=== PATIENT | female | born 1980 | race Caucasian/White ===

== ENCOUNTER 2016-08-20 14:05 | Emergency (ER) | payer OTHER ==
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
--- NOTE | 2016-08-25 08:57 | ED MED RECONCILIATION SUMMARY ---
Patient: ARIANNE CAVANAUGH Medication Reconciliation Report [facility] VisitID: [id number] [address] [place] [address] 35y, F Registration Date/Time: 08/20/2016 Weight: 73.4 kg Height/Length: 63 in. BMI: 28.7 ALLERGIES: No Known Drug Allergy The patient's Home Medications are listed below: NONE. The source(s) of the original Home Medication information: Not obtained. The following Medications were given to the patient in the Emergency Department: None. The following Medications were prescribed to the patient: Naproxen 500 mg tablets: take 1 orally every 12 hours as needed for pain. Dispense twenty (20). No refills. -- Tonja Russell A.R.NFlorenciaP. Flexeril 10 mg: Take 1 orally every 8 hours as needed for muscle spasm. Dispense twenty (20). No refills. Substitution is permissible. -- Tonja Russell A.R.NFlorenciaP.
--- NOTE | 2016-08-25 08:57 | ED MED RECONCILIATION SUMMARY ---
Patient: ARIANNE CAVANAUGH Medication Reconciliation Report [facility] VisitID: [id number] [address] [place] [place] [address] 35y, F Registration Date/Time: 08/20/2016 Weight: 73.4 kg Height/Length: 63 in. BMI: 28.7 ALLERGIES: No Known Drug Allergy The patient's Home Medications are listed below: NONE. The source(s) of the original Home Medication information: Not obtained. The following Medications were given to the patient in the Emergency Department: None. The following Medications were prescribed to the patient: Naproxen 500 mg tablets: take 1 orally every 12 hours as needed for pain. Dispense twenty (20). No refills. -- Tonja Russell A.R.NFlorenciaP. Flexeril 10 mg: Take 1 orally every 8 hours as needed for muscle spasm. Dispense twenty (20). No refills. Substitution is permissible. -- Tonja Russell A.R.NFlorenciaP.
--- NOTE | 2016-08-25 08:57 | ED MAR SUMMARY ---
..... Medication Administration Record [facility] [address] [place], [place] [id number] Patient: ARIANNE CAVANAUGH Visit ID: [id number] 35y, F Weight: 73.4 kg Height/Length: 63 in BMI: 28.7 ALLERGIES: No Known Drug Allergy
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
--- NOTE | 2016-08-25 08:57 | ED MAR SUMMARY ---
..... Medication Administration Record [facility] [address] [place], [place] [id number] Patient: ARIANNE CAVANAUGH Visit ID: [id number] 35y, F Weight: 73.4 kg Height/Length: 63 in BMI: 28.7 ALLERGIES: No Known Drug Allergy
== END 2016-08-20 15:44 | disposition home or self-care (01) ==
LOC: ED SRH 14:05
DX: S63.8X2A Sprain of other part of left wrist and hand, initial encounter (principal); V53.5XXA Driver of pick-up truck or van injured in collision with car, pick-up truck or van in traffic accident, initial encounter; Y93.I9 Activity, other involving external motion; Y92.410 Unspecified street and highway as the place of occurrence of the external cause; Y99.9 Unspecified external cause status; M79.1 Myalgia